=== PATIENT | female | born 1995 ===

== ENCOUNTER 2017-05-20 20:14 | Emergency (ER) | payer OTHER ==
[2017-05-20 20:23] VITALS: BP 133/66; PULSE 92; RESP 16; TEMP 98.8; O2SAT 100
--- NOTE | 2017-05-20 20:43 | ED PDOC ---
HPI: CCC, URI, Sore Throat Time Seen by Provider: 05/20/17 20:25 Chief Complaint (Nursing): ENT Problem Chief Complaint (Provider): ENT problem History Per: Patient History/Exam Limitations: no limitations Onset/Duration Of Symptoms: Days (1x week) Current Symptoms Are (Timing): Still Present Location Of Pain: Throat, Sinus/es, Headache Associated Symptoms: Sore Throat, Cough, Nasal Congestion, Other (headache. generalized weakness,) Severity: Moderate Additional Complaint(s): 22 year old female with no pertinent medical history presents to the ED with complaints of throat pain, accompanied by a headache, generalized body weakness , cough, and nasal congestion for 1x week. She reports taking Dayquil earlier today with no relief. She denies having fevers, chills, nausea, vomiting, and diarrhea. PMD: [facility]. Past Medical History Reviewed: Historical Data, Nursing Documentation, Vital Signs Vital Signs: Last Vital Signs Temp 98.8 F 05/20/17 20:21 Pulse 92 H 05/20/17 20:21 Resp 16 05/20/17 20:21 BP 133/66 05/20/17 20:21 Pulse Ox 100 05/20/17 21:07 - Medical History PMH: No Chronic Diseases - Surgical History Surgical History: No Surg Hx - Family History Family History: States: No Known Family Hx - Social History Current smoker - smoking cessation education provided: No Alcohol: None Drugs: Denies - Home Medications Home Medications: Ambulatory Orders Medication Instructions Recorded Ibuprofen [Motrin] 600 mg PO Q8 PRN #21 tab 05/20/17 - Allergies Allergies/Adverse Reactions: Allergies Allergy/AdvReac Type Severity Reaction Status Date / Time No Known Allergies Allergy Verified 05/20/17 20:21 Review of Systems ROS Statement: Except As Marked, All Systems Reviewed And Found Negative Constitutional: Positive for: Weakness. Negative for: Fever, Chills ENT: Positive for: Nose Congestion, Throat Pain Neurological: Positive for: Headache Physical Exam - Reviewed Nursing Documentation Reviewed: Yes Vital Signs Reviewed: Yes - Physical Exam Appears: Positive for: Well, Non-toxic, No Acute Distress Head Exam: Positive for: ATRAUMATIC, NORMOCEPHALIC Skin: Positive for: Normal Color, Warm, Dry Eye Exam: Positive for: Normal appearance ENT: Negative for: Pharyngeal Erythema (mild irritation noted), Tonsillar Exudate, Tonsillar Swelling Cardiovascular/Chest: Positive for: Regular Rate, Rhythm Respiratory: Positive for: Normal Breath Sounds. Negative for: Respiratory Distress Neurologic/Psych: Positive for: Alert, Oriented (3x) - ECG O2 Sat by Pulse Oximetry: 100 (RA) Pulse Ox Interpretation: Normal - Progress ED Course And Treament: strep negative Medical Decision Making Medical Decision Makin:25 Initial Impression: 22 year old female with throat pain. Initial plan: * Motrin tab 600mg PO * rapid strep group A antigen * reevaluation Scribe Attestation: Documented by Libby Rios, acting as a scribe for Sigrid Wiggins PA-C. Provider Scribe Attestation: All medical record entries made by the Scribe were at my direction and personally dictated by me. I have reviewed the chart and agree that the record accurately reflects my personal performance of the history, physical exam, medical decision making, and the department course for this patient. I have also personally directed, reviewed, and agree with the discharge instructions and disposition. Disposition - Clinical Impression Clinical Impression: Pharyngitis - Patient ED Disposition Is Patient to be Admitted: No - Disposition Referrals: [facility] [Outside] Disposition: Routine/Home Disposition Time: 21:09 Condition: FAIR Prescriptions: Ibuprofen [Motrin] 600 mg PO Q8 PRN #21 tab PRN Reason: Pain, Moderate (4-7) Instructions: Pharyngitis (ED) Forms: [employer] (Vietnamese)
== END 2017-05-20 21:21 | disposition home or self-care (01) ==
LOC: H.ER 20:14
DX: J02.9 Acute pharyngitis, unspecified (principal); R51 Headache

== ENCOUNTER 2017-08-31 14:34 | Emergency (ER) | payer SELFPAY ==
[2017-08-31] MEDS ORDERED: Sodium Chloride 0.9% 1,000 ML IV STA (15:28)
--- NOTE | 2017-08-31 15:30 | ED PDOC ---
HPI: Abdomen Time Seen by Provider: 08/31/17 15:21 Chief Complaint (Nursing): Abdominal Pain History Per: Patient Onset/Duration Of Symptoms: Days (2) Current Symptoms Are (Timing): Still Present Severity: Mild Pain Scale Rating Of: 2 Location Of Pain/Discomfort: Epigastric Quality Of Discomfort: Sharp Associated Symptoms: Nausea Exacerbating Factors: None Alleviating Factors: None Additional Complaint(s): Epigastric abd pain assoc with nausea since last night. No feevr. No vomiting or diarrhea Past Medical History Vital Signs: Last Vital Signs Temp 98.3 F 08/31/17 15:15 Pulse 100 H 08/31/17 15:15 Resp 16 08/31/17 15:15 BP 114/68 08/31/17 15:15 Pulse Ox 99 08/31/17 15:30 - Medical History PMH: No Chronic Diseases - Family History Family History: States: Unknown Family Hx - Home Medications Home Medications: Ambulatory Orders Medication Instructions Recorded Ibuprofen [Motrin] 600 mg PO Q8 PRN #21 tab 05/20/17 Famotidine [Pepcid] 20 mg PO Q12 #20 tab 08/31/17 - Allergies Allergies/Adverse Reactions: Allergies Allergy/AdvReac Type Severity Reaction Status Date / Time No Known Allergies Allergy Verified 08/31/17 15:15 Review of Systems ROS Statement: Except As Marked, All Systems Reviewed And Found Negative Gastrointestinal: Positive for: Nausea, Abdominal Pain Physical Exam - Reviewed Nursing Documentation Reviewed: Yes Vital Signs Reviewed: Yes - Physical Exam Appears: Positive for: Non-toxic, No Acute Distress Head Exam: Positive for: ATRAUMATIC, NORMAL INSPECTION, NORMOCEPHALIC Skin: Positive for: Normal Color, Warm, DRY Eye Exam: Positive for: EOMI, Normal appearance, PERRL ENT: Positive for: Normal ENT Inspection Neck: Positive for: Normal, Painless ROM Cardiovascular/Chest: Positive for: Regular Rate, Rhythm Respiratory: Positive for: CNT, Normal Breath Sounds Gastrointestinal/Abdominal: Positive for: Bowel Sounds, Soft, Tenderness ( epigastric) Back: Positive for: Normal Inspection Extremity: Positive for: Normal ROM Neurologic/Psych: Positive for: Alert, Oriented - Laboratory Results Result Diagrams: 08/31/17 16:31 08/31/17 16:31 - ECG O2 Sat by Pulse Oximetry: 99 Disposition - Clinical Impression Clinical Impression: Gastritis - Patient ED Disposition Is Patient to be Admitted: No Counseled Patient/Family Regarding: Studies Performed, Diagnosis, Need For Followup, Rx Given - Disposition Referrals: [facility] [Outside] Disposition: Routine/Home Disposition Time: 17:09 Condition: FAIR Prescriptions: Famotidine [Pepcid] 20 mg PO Q12 #20 tab Instructions: Gastritis (ED) Forms: [employer] (Khmer)
[2017-08-31 16:37] LABS: BASO % 0.4 % (0.0-2.0); EOS # 0.2 K/uL (0.0-0.7); EOS % 1.8 % (0.0-4.0); HEMATOCRIT 40.5 % (34.0-47.0); LYMPH # 1.4 K/uL (1.0-4.3); LYMPH % 15.6 % (20.0-40.0); MEAN CELL VOLUME 83.5 fl (81.0-99.0); MEAN CORPUSCULAR HEMOGLOBIN 28.1 pg (27.0-31.0); MEAN CORPUSCULAR HGB CONC 33.7 g/dL (33.0-37.0); MEAN PLATELET VOLUME 7.8 fl (7.2-11.7); MONO # 0.4 K/uL (0.0-0.8); MONO % 4.8 % (0.0-10.0); NEUT # 6.9 K/uL (1.8-7.0); NEUT % 77.4 % (50.0-75.0); NRBC % 0.1 % (0.0-0.0); RED CELL DISTRIBUTION WIDTH 12.9 % (11.5-14.5); WHITE BLOOD COUNT 8.9 K/uL (4.8-10.8)
[2017-08-31 16:46] LABS: ALB/GLOB RATIO 1.5 (1.0-2.1); ALKALINE PHOSPHATASE 72 U/L (38-126); ALT/SGPT 33 U/L (9-52); AST/SGOT 21 U/L (14-36); BILIRUBIN,TOTAL 0.8 mg/dl (0.2-1.3); BLOOD UREA NITROGEN 15 mg/dl (7-17); CALCIUM 9.6 mg/dL (8.4-10.2); CARBON DIOXIDE 24 mmol/L (22-30); CHLORIDE 103 mmol/L (98-107); GFR AFRICAN-AMERICAN > 60; GLUCOSE,RANDOM 99 mg/dL (65-105); SODIUM 139 mmol/l (132-148); TOTAL PROTEIN 7.6 G/DL (6.3-8.2)
[2017-08-31 18:31] VITALS: BP 123/67; PULSE 87; RESP 18; TEMP 98; O2SAT 100
== END 2017-08-31 18:31 | disposition home or self-care (01) ==
LOC: H.ER 14:34
DX: K29.70 Gastritis, unspecified, without bleeding (principal)
CPT/HCPCS: 80053; 85025; 96374; 96375; 99283; J2405; J7040

== ENCOUNTER 2017-12-07 18:34 | Emergency (ER) | payer SELFPAY ==
--- NOTE | 2017-12-07 22:02 | ED PDOC ---
HPI: Female Pain Time Seen by Provider: 12/07/17 21:52 Chief Complaint (Nursing): Abdominal Pain Chief Complaint (Provider): vaginal discharge History Per: Patient History/Exam Limitations: no limitations Onset/Duration Of Symptoms: Days (1) Current Symptoms Are (Timing): Still Present Quality Of Discomfort: "Pain" Additional Complaint(s): 22 y/o female presents for evaluation of vaginal discharge x 1 day. Patient states she was at her primary doctor's office last week for a refill on her control, and during questioning was advised that colored vaginal discharge is concerning and should be looked in to if ever present. Patient states today she noted white to yellow vaginal discharge. Patient also reports sharp suprapubic pain a few hours ago, since resolved. Denies fever, nausea/ vomiting, chest pain, shortness of breath, changes in bowel movements, urinary symptoms, vaginal bleeding. Patient states she is sexually active with one partner, does not use protection, states no reason to suspect STD. Past Medical History Reviewed: Historical Data, Nursing Documentation, Vital Signs Vital Signs: Last Vital Signs Temp 97.8 F 12/07/17 19:35 Pulse 71 12/07/17 19:35 Resp 16 12/07/17 19:35 BP 105/65 12/07/17 19:35 Pulse Ox 100 12/07/17 19:35 - Medical History PMH: No Chronic Diseases - Surgical History Surgical History: Appendectomy - Family History Family History: States: Unknown Family Hx - Living Arrangements Living Arrangements: With Family - Home Medications Home Medications: Ambulatory Orders Medication Instructions Recorded Ibuprofen [Motrin] 600 mg PO Q8 PRN #21 tab 05/20/17 Famotidine [Pepcid] 20 mg PO Q12 #20 tab 08/31/17 - Allergies Allergies/Adverse Reactions: Allergies Allergy/AdvReac Type Severity Reaction Status Date / Time No Known Allergies Allergy Verified 08/31/17 15:15 Review of Systems ROS Statement: Except As Marked, All Systems Reviewed And Found Negative Genitourinary Female: Positive for: Vaginal Discharge Physical Exam - Reviewed Nursing Documentation Reviewed: Yes Vital Signs Reviewed: Yes - Physical Exam Appears: Positive for: Well, Non-toxic, No Acute Distress Head Exam: Positive for: ATRAUMATIC, NORMAL INSPECTION, NORMOCEPHALIC Skin: Positive for: Normal Color Eye Exam: Positive for: Normal appearance ENT: Positive for: Normal ENT Inspection Cardiovascular/Chest: Positive for: Regular Rate, Rhythm Respiratory: Positive for: Normal Breath Sounds Gastrointestinal/Abdominal: Positive for: Normal Exam, Bowel Sounds, Soft. Negative for: Tenderness Pelvic Exam: Positive for: External Exam Normal, No Cerv. 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 Negative for: Active Bleeding, Blood, Cervicitis Back: Positive for: Normal Inspection Extremity: Positive for: Normal ROM Neurologic/Psych: Positive for: Alert, Oriented - ECG O2 Sat by Pulse Oximetry: 100 - Progress ED Course And Treament: Patient educated on findings, offered prophylaxis for STDs but patient would like to await results as she feels it is not that. 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 Return precautions given Disposition - Clinical Impression Clinical Impression: Vaginal discharge - Patient ED Disposition Is Patient to be Admitted: No Counseled Patient/Family Regarding: Studies Performed, Diagnosis, Need For Followup - [facility]position [facility] Disposition: Routine/Home Disposition Time: 23:34 Condition: IMPROVED Instructions: Vaginal Discharge in Adults
[2017-12-07 23:44] VITALS: BP 100/57; PULSE 66; RESP 18; TEMP 98.3; O2SAT 99
== END 2017-12-08 00:17 | disposition home or self-care (01) ==
LOC: H.ER 18:34
DX: N89.8 Other specified noninflammatory disorders of vagina (principal)

== ENCOUNTER 2018-04-19 18:18 | Emergency (ER) | payer OTHER, SELFPAY ==
[2018-04-19 18:55] VITALS: BP 115/75; PULSE 77; RESP 20; TEMP 98.6; O2SAT 100
--- NOTE | 2018-04-19 19:15 | ED PDOC ---
HPI: Skin/Bite Injury Time Seen by Provider: 04/19/18 18:55 Chief Complaint (Nursing): Breast Problem Chief Complaint (Provider): Breast Problem History Per: Patient History/Exam Limitations: no limitations Onset/Duration Of Symptoms: Days (x3 weeks) Current Symptoms Are (Timing): Still Present Location Of Injury: Left: Chest (left breast) Additional Complaint(s): 23 year old male with no significant past medical history presents with a pruritic rash on left breast onset 3 weeks. Patient denies swelling, pain, fever , family history of breast cancer or any other medical complaints. PMD: [facility] Past Medical History Reviewed: Historical Data, Nursing Documentation, Vital Signs Vital Signs: Last Vital Signs Temp 98.6 F 04/19/18 18:53 Pulse 77 04/19/18 18:53 Resp 20 04/19/18 18:53 BP 115/75 04/19/18 18:53 Pulse Ox 100 04/19/18 19:50 - Medical History PMH: No Chronic Diseases - Surgical History Surgical History: Appendectomy - Family History Family History: States: Unknown Family Hx - Home Medications Home Medications: Ambulatory Orders Medication Instructions Recorded Ibuprofen [Motrin] 600 mg PO Q8 PRN #21 tab 05/20/17 Famotidine [Pepcid] 20 mg PO Q12 #20 tab 08/31/17 Nystatin [Nystop Topical Powder] 1 applic TOP TID #1 bottle 04/19/18 - Allergies Allergies/Adverse Reactions: Allergies Allergy/AdvReac Type Severity Reaction Status Date / Time No Known Allergies Allergy Verified 04/19/18 18:53 Review of Systems ROS Statement: Except As Marked, All Systems Reviewed And Found Negative Skin: Positive for: Rash (on left breast) Physical Exam - Reviewed Nursing Documentation Reviewed: Yes Vital Signs Reviewed: Yes - Physical Exam Appears: Positive for: Well, Non-toxic, No Acute Distress Skin: Positive for: Rash (left breast at approximately the 3 oclock position, small annular plaque with scaling noncentral clearing, no vesicles, no pustules , no swelling, or induration ) Eye Exam: Positive for: Normal appearance Neurologic/Psych: Positive for: Alert, Oriented (x3) Comments: Breast: no nipple discharge, no axillary lymphadenopathy. Chaperoned by Hannah. - ECG O2 Sat by Pulse Oximetry: 100 (RA) Pulse Ox Interpretation: Normal Medical Decision Making Medical Decision Making: Time: 19:00 --Patient advised to follow up with the [facility] is rash persists because she may need further testing. Patient verbalized the need to follow up with [facility] if symptoms persist. Scribe Attestation: Documented by Georgie Lake, acting as a scribe for Thien Bolton PA-C. ~ Provider Scribe Attestation: All medical record entries made by the Scribe were at my direction and personally dictated by me. I have reviewed the chart and agree that the record accurately reflects my personal performance of the history, physical exam, medical decision making, and the department course for this patient. I have also personally directed, reviewed, and agree with the discharge instructions and disposition. Disposition - Clinical Impression Clinical Impression: Tinea corporis - Patient ED Disposition Is Patient to be Admitted: No - Disposition Referrals: [email or web address] [Outside] [facility] [Outside] Disposition: Routine/Home Disposition Time: 21:00 Condition: STABLE Additional Instructions: BEHZAD FERNANDEZ, thank you for letting us take care of you today. Your provider was Preet Ariza III, DO and you were treated for RASH ON LEFT BREAST. The emergency medical care you received today was directed at your acute symptoms. If you were prescribed any medication, please fill it and take as directed. It may take several days for your symptoms to resolve. Return to the Emergency Department if your symptoms worsen, do not improve, or if you have any other problems. Please contact your doctor or call one of the physicians/clinics you have been referred to that are listed on the Patient Visit Information form that is included in your discharge packet. Bring any paperwork you were given at discharge with you along with any medications you are taking to your follow up visit. Our treatment cannot replace ongoing medical care by a primary care provider outside of the emergency department. Thank you for allowing the [facility] team to be part of your care today. If you had an X-Ray or CT scan: A Radiologist will review the ED reading if any change in treatment is needed we will contact you. If you had a blood, urine, or wound culture: It will take several days for the results, if any change in treatment is needed we will contact you. If you had an STI test: It will take 48 hours for the results. Please call after 1 week if you have not heard back. Prescriptions: Nystatin [Nystop Topical Powder] 1 applic TOP TID #1 bottle Instructions: Ringworm (DC) Forms: [employer] (Maltese) Print Language: DANISH
== END 2018-04-19 20:00 | disposition home or self-care (01) ==
LOC: H.ER 18:18
DX: B35.4 Tinea corporis (principal)

== ENCOUNTER 2018-07-07 15:49 | Emergency (ER) | payer OTHER ==
[2018-07-07 15:54] VITALS: BP 103/64; PULSE 85; RESP 16; TEMP 98.2; O2SAT 99
--- NOTE | 2018-07-07 17:04 | ED PDOC ---
HPI: Female Pain Time Seen by Provider: 07/07/18 16:14 Chief Complaint (Nursing): Female Genitourinary Chief Complaint (Provider): Female Genitourinary History Per: Patient History/Exam Limitations: no limitations Onset/Duration Of Symptoms: Days (x2) Current Symptoms Are (Timing): Still Present Additional Complaint(s): 23 year old female with no pmhx or hx of UTIs presents to the ED for evaluation of dysuria, frequency, and urgency for the past two days. No concern for STI. Denies taking any medications drier feeder, fever, chills, back pain, abdominal pain, hematuria, and vaginal discharge / bleeding. PMD: [facility] Past Medical History Reviewed: Historical Data, Nursing Documentation, Vital Signs Vital Signs: Last Vital Signs Temp 98.2 F 07/07/18 15:52 Pulse 85 07/07/18 15:52 Resp 16 07/07/18 15:52 BP 103/64 07/07/18 15:52 Pulse Ox 99 07/07/18 15:52 - Medical History PMH: No Chronic Diseases - Surgical History Surgical History: Appendectomy - Family History Family History: States: Unknown Family Hx - Home Medications Home Medications: Ambulatory Orders Medication Instructions Recorded Ibuprofen [Motrin] 600 mg PO Q8 PRN #21 tab 05/20/17 Famotidine [Pepcid] 20 mg PO Q12 #20 tab 08/31/17 Nystatin [Nystop Topical Powder] 1 applic TOP TID #1 bottle 04/19/18 Nitrofurantoin Macrocrystals 100 mg PO BID #14 cap 07/07/18 [Macrobid] Phenazopyridine [Pyridium] 200 mg PO Q8H PRN #6 tab 07/07/18 - Allergies Allergies/Adverse Reactions: Allergies Allergy/AdvReac Type Severity Reaction Status Date / Time No Known Allergies Allergy Verified 07/07/18 15:52 Review of Systems ROS Statement: Except As Marked, All Systems Reviewed And Found Negative Constitutional: Negative for: Fever, Chills Gastrointestinal: Negative for: Abdominal Pain Genitourinary Female: Positive for: Dysuria, Frequency, Other (Urinary urgency). Negative for: Hematuria, Vaginal Discharge, Vaginal Bleeding Musculoskeletal: Negative for: Back Pain Physical Exam - Reviewed Nursing Documentation Reviewed: Yes Vital Signs Reviewed: Yes - Physical Exam Appears: Positive for: No Acute Distress Head Exam: Positive for: ATRAUMATIC, NORMOCEPHALIC Skin: Positive for: Normal Color, Warm, Dry. Negative for: Rash Eye Exam: Positive for: Normal appearance Cardiovascular/Chest: Positive for: Regular Rate, Rhythm Respiratory: Positive for: Normal Breath Sounds. Negative for: Respiratory Distress Pulses-Radial (L): 2+ Pulses-Radial (R): 2+ Gastrointestinal/Abdominal: Positive for: Normal Exam, Bowel Sounds (normal), Soft. Negative for: Tenderness Back: Positive for: Normal Inspection. Negative for: L CVA Tenderness, R CVA Tenderness Neurologic/Psych: Positive for: Alert, Oriented (x3), Gait (steady). Negative for: Motor/Sensory Deficits - Laboratory Results Urine POC: Negative Urine dip results: Positive for: Leukocyte Esterase - ECG O2 Sat by Pulse Oximetry: 99 (RA) Pulse Ox Interpretation: Normal Medical Decision Making Medical Decision Making: Time: 1557 Initial Impression: UTI Initial Plan: --U-dip --Chlamydia/GC RNA, TMA --Pyridium 200mg PO --Urine culture Pt is to be d/c with scripts for macrobid and pyridium. Instructed to follow up with her primary and return with any new or worsening symptoms. Scribe Attestation: Documented by Shari Reyes, acting as a scribe for Brit Velazquez PA-C. Provider Scribe Attestation: All medical record entries made by the Scribe were at my direction and personally dictated by me. I have reviewed the chart and agree that the record accurately reflects my personal performance of the history, physical exam, medical decision making, and the department course for this patient. I have also personally directed, reviewed, and agree with the discharge instructions and disposition. Disposition - Clinical Impression Clinical Impression: UTI (urinary tract infection) - Disposition Disposition: Routine/Home Disposition Time: 17:15 Condition: STABLE Additional Instructions: Take antibiotic every 12 hours for 7 days Take pyridium every 8 hours for 2 days Followup with primary within 2 days Return to ER for new or worsening symptoms Prescriptions: Nitrofurantoin Macrocrystals [Macrobid] 100 mg PO BID #14 cap Phenazopyridine [Pyridium] 200 mg PO Q8H PRN #6 tab PRN Reason: dysuria Instructions: Urinary Tract Infection, Adult (DC) Forms: [employer] (Trinidadian), [facility] ED School/Work Excuse
== END 2018-07-07 17:27 | disposition home or self-care (01) ==
LOC: H.ER 15:49
DX: N39.0 Urinary tract infection, site not specified (principal)